=== PATIENT | male | born 1945 | race Caucasian/White ===

== ENCOUNTER 2016-08-15 11:05 | Emergency (ER) | payer MEDICARE, OTHER, BC ==
[~2016-08-15 11:05] MED LIST: ADVAIR250 INH; ALEVE220 MG PO; ASA5GR PO; ASAB PO; ASABAYER PO; ASAEC PO; ASCRIPTIN PO; BESIVANCE0.6 % OPH; CENTRUM SILVER PO; CENTRUM TAB1 TAB PO; CO Q-10 PO; CO Q-10100 MG PO; CO Q-10200 MG PO; CO Q-10400 MG PO; COLON HEALTH PO; COQ-10200 MG PO; COREG12; COREG12 PO; COREG25 PO; COREG3 PO; COREG6 PO; CORICIDI2 OR; CORICIDI3 OR; CQ 10 PO; DUONEB INH; DUREZOL0.05 % OPH; ENALAPRIL MALEATE PO; ETODOLAC ER400 MG PO; ETODOLAC400 MG OR; EZFE 200200 MG PO; FISH OIL300 MG PO; FISH-EPA1000 MG PO; FLOMAX4 PO; FLONASE NAS; HUMULIN R1 ML SC; HYT2 PO; IBU-200200 MG PO; INDO50 PO; INSULIN LANTUS SC; K-PHO2 OR; L40 PO; LANTUS SC; LANTUSCART SC; LIPITOR10 PO; LIPITOR20 PO; MEGA RED FISH OIL PO; MEGA RED KRILL OIL PO; MELATONIN5 M1 PO; METHOC500B PO; METHOC750B PO; MULTIPLE VIT PO; NOVOLOG SC; NOVOPEN SC; OTC STOOL SOFTENER PO; PACERONE100 MG PO; PACERONE200 MG PO; PLAVIX PO; POTASSIUM OTC PO; POTASSIUM95 MG PO; PRAVACHOL40 MG PO; PRILO PO; PRIN5 PO; PROBIOTIC PO; PROBIOTICS PO; PROLENSA1.6 ML OPH; PROMEGA PO; PROTONIX PO; ROXICODONE15 MG PO; SINGULAIR1 PO; SPIRIVA INH; SPIRO25 PO; TRAZ50 PO; VANCOCIN HCL125 MG PO; VASOTEC10 PO; VASOTEC2 PO; Z100 PO; ZOCOR40 PO; ZOCOR80 MG PO; ZOL100 PO; ZOL50 PO; ZOLOFT25 MG PO; ZYRTEC ALLGY10 MG PO; [UNRECOGNIZED DRUG - CODE] SC
== END 2016-08-15 11:17 | disposition home or self-care (01) ==
LOC: ER 11:05
DX: R07.81 Pleurodynia (principal); M54.6 Pain in thoracic spine; I25.2 Old myocardial infarction; I11.0 Hypertensive heart disease with heart failure; E11.9 Type 2 diabetes mellitus without complications; Z95.0 Presence of cardiac pacemaker; Z95.5 Presence of coronary angioplasty implant and graft; Z88.0 Allergy status to penicillin; Z88.5 Allergy status to narcotic agent; Z79.4 Long term (current) use of insulin; Z79.82 Long term (current) use of aspirin; Z79.899 Other long term (current) drug therapy
CPT/HCPCS: 71020; 71100-RT; 72072; 96372; 99284; J1170